=== PATIENT | female | born 1965 | race Caucasian/White ===

== ENCOUNTER → 2016-05-07 | Outpatient (CLI) | payer OTHER ==
[2016-05-07 16:58] VITALS: BP 140/88; PULSE 66; RESP 16; TEMP 97.8; BMI 29.8
--- NOTE | 2016-05-11 18:28 | P.PN ---
Progress Note - Text DATE OF SERVICE: 05/07/2016 CHIEF COMPLAINT: Bariatric assessment. HISTORY OF PRESENT ILLNESS: Vicki Moya is a 51-year-old female with history of adjustable gastric band. As she has had troubles with her weight. She initially had intractable intermittent nausea and vomiting where fluid was removed from her band and now she presents for further evaluation and management. At her height of 5 foot 5, her ideal body weight is 149 pounds. Highest weight was 255 pounds. Today she comes in weighing 179 pounds. She is only 30 pounds overweight. Body mass index has been reduced from 42.5 down to 29.8. Her percent excess weight loss is 72%. Since her last evaluation 4 months ago she has lost another 3 pounds. Now she presents for further evaluation and management. PAST MEDICAL HISTORY: 1. Morbid obesity. 2. Hypertension. 3. Seizure disorder. PAST SURGICAL HISTORY: 1. History of adjustable gastric band placement. 2. section. 3. Tonsillectomy. 4. Tubal ligation. 5. History of adjustable gastric band with port revision. 6. Right temporal lobe biopsy. 7. Sphincterotomy. MEDICATIONS: 1. Luvox. 2. Tegretol. 3. Losartan hydrochlorothiazide. ALLERGIES: TOBRAMYCIN. ERYTHROMYCIN. SOCIAL HISTORY: Reports alcohol use. No active tobacco use. FAMILY HISTORY: Pertinent for morbid obesity and hypertension. REVIEW OF ORGAN SYSTEMS: CONSTITUTIONAL: Highest weight of 255 pounds. [place] body weight of 149 pounds. Present weight is 179 pounds. She has maintained a 76 pound weight loss. Percent excess weight loss is 72%. She has lost 3 pounds in approximately 4 months. Body mass index reduced from 42.5 down to 29.8. Total BMI point reduction is 12.7. GASTROINTESTINAL: Denies any gastroesophageal reflux disease at this time. HEENT: Denies any active dysphagia. No troubles with vision or hearing. ENDOCRINE: No reports of diabetes or thyroid disorders. CARDIOVASCULAR: No reports of recent chest pain or heart attack. RESPIRATORY: Denies any obstructive sleep apnea or dyspnea on exertion. MUSCULOSKELETAL: Reports intermittent osteoarthritis. There are no reports of stroke, however, she does have history of seizure disorder. NEURO: No seizure disorder or stroke. PHYSICAL EXAM: VITAL SIGNS: 97.8, 66, 16, 140/88; 5 feet 5 inches, 179 pounds. Body mass is 29.8. GENERAL: Well-developed female no acute distress. ABDOMEN: Soft, nontender. No palpable incisional hernias. No tenderness along her adjustable gastric band port. HEENT: No scleral icterus. Extraocular movements grossly intact. Moist buccal mucosa. NECK: Supple without lymphadenopathy. CHEST: Nonlabored respirations. CARDIOVASCULAR: Regular rate and rhythm. MUSCULOSKELETAL: No clubbing, cyanosis, or edema. NEURO: No focal or lateralizing signs. Cranial nerves II through XII grossly within normal limits. PSYCH: Appropriate affect. Alert and oriented to person, place, and time. ASSESSMENT: 1. Morbid obesity due to excess calories, now resolved. 2. Body mass index reduced from 42.5 down to 29.8. 3. History of overweight. 4. History of adjustable gastric band. 5. Encounter for adjustment of gastric band. 6. Hypertensive heart disease. PLAN: 1. Would recommend adjustment, as she does report overall appetite. 2. Goal protein intake is advised over 65 grams daily. PROCEDURE: Adjustment of gastric band. DESCRIPTION: After verbal consent, the patient was laid supine. The port was palpated in left upper quadrant. The skin was cleansed with ChloraPrep. The skin was then numbed using 1 mL of 1% lidocaine plain. A 22-gauge non-core Hamm needle was used to access the port without difficulty. 5 mL of fluid was found within her band. 1 mL of normal saline was adjusted as she was drinking water. Total of 6 mL fluid identified. She was able to drink water without severe obstructive symptoms. Otherwise, recommend follow-up at minimum 3 to 4 weeks. Otherwise the patient may follow up sooner should she have any further problems.
== END | disposition home or self-care (01) ==
LOC: BARWHC3 14:42
PROVIDERS: ATTEND Surgery Plastic and Reconstructive Surgery
DX: Z48.815 Encounter for surgical aftercare following surgery on the digestive system (principal); Z98.84 Bariatric surgery status; Z79.899 Other long term (current) drug therapy; Z88.1 Allergy status to other antibiotic agents; Z68.29 Body mass index [BMI] 29.0-29.9, adult
CPT/HCPCS: 99212

== ENCOUNTER → 2016-06-05 | Outpatient (CLI) | payer OTHER ==
[2016-06-05 10:27] VITALS: BP 154/96; PULSE 71; RESP 14; TEMP 97.7; BMI 29.7
--- NOTE | 2016-06-05 13:08 | FL ---
EXAMINATION TYPE: FL barium swallow DATE OF EXAM: 06/05/2016 12:10 PM LAP BANDING LIMITED ESOPHAGRAM: CLINICAL HISTORY: History of lap band 2010 presents with left sided pain near port under breast and reflux-like symptoms at night per patient. 1 cc fill recently removed per patient. Dysphasia, epigast flavio pain, and nausea all per order. TECHNIQUE: Limited esophagram is performed utilizing 6 oz of barium. A total of 24 seconds of fluoro scopic time was utilized during procedure. COMPARISON: Prior limited esophagram October 26, 2010. FINDINGS: Pre-procedure director of scout work image shows lap band in satisfactory position in proximal stomach ju st below the gastroesophageal junction. The patient then drank oral contrast. There is good flow of c ontrast along the course of the esophagus. There is good flow of contrast along the course of the la p band, there is no evidence of contrast extravasation to suggest leak. There is no evidence of lap band slippage appreciated. IMPRESSION: No evidence of lap band slippage or significant obstruction.
--- NOTE | 2016-07-07 12:37 | PN ---
DATE OF SERVICE: 06/05/2016 CHIEF COMPLAINT: Bariatric assessment. HISTORY OF PRESENT ILLNESS: Vicki Moya is a 51-year-old female with history of adjustable gastric band. In the past she has developed troubles with her weight. At her height of 5 feet 4-1/4 inches, her ideal body weight is 144 pounds. Her initial weight was 255 pounds. Today she comes in weighing 177 pounds. She has actually lost 2 pounds. Body mass index has been reduced from 42.9 down to 29.7. Total BMI point reduction is 13.2. She has maintained a 78-pound weight loss. Since her last evaluation approximately a month ago she has actually lost another 2 pounds despite being adjusted. She comes in with complaints that her port has malfunction including chronic burning. She also reports nighttime reflux for the last 2 to 3 weeks. Now she presents for further evaluation regarding her adjustable gastric band. PAST MEDICAL HISTORY: 1. Morbid obesity. 2. Hypertension. 3. Seizure disorder. PAST SURGICAL HISTORY: 1. History of adjustable gastric band placement. 2. section. 3. Tonsillectomy. 4. Tubal ligation. 5. History of adjustable gastric band with port revision. 6. Right temporal lobe biopsy. 7. Sphincterotomy. MEDICATIONS: 1. Luvox. 2. Tegretol. 3. Losartan hydrochlorothiazide. 4. Melatonin. 5. Xanax. ALLERGIES: TOBRAMYCIN. ERYTHROMYCIN. SOCIAL HISTORY: Reports alcohol use. No active tobacco use. FAMILY HISTORY: Pertinent for morbid obesity and hypertension. REVIEW OF SYSTEMS: CONSTITUTIONAL: [place] body weight of 144 pounds. Highest weight of 255 pounds. Total maintained weight loss of 78 pounds. Percent excess weight loss is 71%. Body mass index reduced from 42.9 down to 29.7. Total BMI point reduction is 13.2. GASTROINTESTINAL: Severe gastroesophageal reflux disease. HEENT: Denies any active dysphagia. No troubles with vision or hearing. ENDOCRINE: No reports of diabetes or thyroid disorders. CARDIOVASCULAR: No reports of recent chest pain or heart attack. RESPIRATORY: Denies any obstructive sleep apnea or dyspnea on exertion. MUSCULOSKELETAL: Reports intermittent osteoarthritis. There are no reports of stroke, however, she does have history of seizure disorder. NEURO: No seizure disorder or stroke. PHYSICAL EXAM: VITAL SIGNS: 97.7, 71, 14, 154/96, 5 feet 4 and 3/4 inch frame, 177 pounds. Body mass is a 29.7. ABDOMEN: Soft, nondistended. Port palpated along the left upper quadrant. Moderate panniculitis. GENERAL: Well-developed female no acute distress. HEENT: No scleral icterus. Extraocular movements grossly intact. Moist buccal mucosa. NECK: Supple without lymphadenopathy. CHEST: Nonlabored respirations. CARDIOVASCULAR: Regular rate and rhythm. MUSCULOSKELETAL: No clubbing, cyanosis, or edema. NEURO: No focal or lateralizing signs. Cranial nerves II through XII grossly within normal limits. PSYCH: Appropriate affect. Alert and oriented to person, place, and time. LABS: No new labs at this time. ASSESSMENT: 1. Morbid obesity due to excess calories, now resolved. 2. Body mass index reduced from 42.5 down to 29.8. 3. History of overweight. 4. History of adjustable gastric band. 5. Encounter for adjustment of gastric band. 6. Hypertensive heart disease. 7. Gastroesophageal reflux disease. 8. Complications from adjustable gastric band port. PLAN: 1. She continues to have symptoms with her band and I have recommend removal of fluid from her band. 2. She also reports troubles with her port where the port tends to roll or malfunction. Recommend diagnostic laparoscopy with revision of her port. 3. Recommend liquid diet after her port adjustment. PROCEDURE: Adjustment of gastric band. DESCRIPTION: After verbal consent, the patient was laid supine. The port was palpated in left upper quadrant. Skin was cleansed with ChloraPrep. The skin was numbed using 1 mL 1% lidocaine plain. A 22-gauge non-core Hamm needle was used to access the port without difficulty. Next, 6 mL of fluid was found within her band, 2 mL of fluid was removed. Now she has a total of 4 mL in her band. She was able to tolerate drinking her fluids with improvement of her symptoms. I have recommended follow-up sooner should she have any further obstructive symptoms. Otherwise, recommend reposition of her adjustable gastric band port. [facility]
== END | disposition home or self-care (01) ==
LOC: BARWHC3 09:16
PROVIDERS: ATTEND Surgery Plastic and Reconstructive Surgery
DX: R13.10 Dysphagia, unspecified (principal); R11.0 Nausea
CPT/HCPCS: 74220; 99212

== ENCOUNTER → 2016-07-04 | Outpatient (CLI) | payer OTHER | LOC: LABWHC1 08:52 | PROVIDERS: ATTEND Family Medicine | DX: Z01.818 Encounter for other preprocedural examination (principal) | CPT/HCPCS: 36415; 93005 ==

== ENCOUNTER 2016-07-07 11:19 | Day surgery (SDC) | payer OTHER ==
[2016-07-04 09:01] VITALS: BMI 29.6
--- NOTE | 2016-07-07 07:26 | P.GSHP ---
History of Present Illness H&P Date: 07/07/16 CHIEF COMPLAINT: Malfunctioning port HISTORY OF PRESENT ILLNESS: Vicki Moya is a 51-year-old female with history of adjustable gastric band. As she has had troubles with her weight. She initially had intractable intermittent nausea and vomiting where fluid was removed from her band and now she presents for further evaluation and management. At her height of 5 foot 5, her ideal body weight is 149 pounds. Highest weight was 255 pounds. Today she comes in weighing 178 pounds. She is only 30 pounds overweight. Body mass index has been reduced from 42.5 down to 29.6. Her percent excess weight loss is 72%. She comes in with troubles with her port which flips. Separately she reports intermittent abdominal pain from a port site.. Now she presents for further evaluation and management. PAST MEDICAL HISTORY: 1. Morbid obesity. 2. Hypertension. 3. Seizure disorder. PAST SURGICAL HISTORY: 1. History of adjustable gastric band placement. 2. section. 3. Tonsillectomy. 4. Tubal ligation. 5. History of adjustable gastric band with port revision. 6. Right temporal lobe biopsy. 7. Sphincterotomy. MEDICATIONS: 1. Luvox. 2. Tegretol. 3. Losartan hydrochlorothiazide. ALLERGIES: TOBRAMYCIN. ERYTHROMYCIN. SOCIAL HISTORY: Reports alcohol use. No active tobacco use. FAMILY HISTORY: Pertinent for morbid obesity and hypertension. REVIEW OF ORGAN SYSTEMS: CONSTITUTIONAL: Highest weight of 255 pounds. [place] body weight of 149 pounds. Present weight is 178 pounds. She has maintained a 77 pound weight loss. Percent excess weight loss is 72%. Body mass index reduced from 42.5 down to 29.6. Total BMI point reduction is 12.7. GASTROINTESTINAL: Denies any gastroesophageal reflux disease at this time. HEENT: Denies any active dysphagia. No troubles with vision or hearing. ENDOCRINE: No reports of diabetes or thyroid disorders. CARDIOVASCULAR: No reports of recent chest pain or heart attack. RESPIRATORY: Denies any obstructive sleep apnea or dyspnea on exertion. MUSCULOSKELETAL: Reports intermittent osteoarthritis. There are no reports of stroke, however, she does have history of seizure disorder. NEURO: No seizure disorder or stroke. PHYSICAL EXAM: VITAL SIGNS: 97.8, 66, 16, 140/88; 5 feet 5 inches, 178 pounds. Body mass is 29.6. GENERAL: Well-developed female no acute distress. ABDOMEN: Soft, nontender. No palpable incisional hernias. No tenderness along her adjustable gastric band port. HEENT: No scleral icterus. Extraocular movements grossly intact. Moist buccal mucosa. NECK: Supple without lymphadenopathy. CHEST: Nonlabored respirations. CARDIOVASCULAR: Regular rate and rhythm. MUSCULOSKELETAL: No clubbing, cyanosis, or edema. NEURO: No focal or lateralizing signs. Cranial nerves II through XII grossly within normal limits. PSYCH: Appropriate affect. Alert and oriented to person, place, and time. ASSESSMENT: 1. Morbid obesity due to excess calories, now resolved. 2. Body mass index reduced from 42.5 down to 29.6. 3. History of overweight. 4. History of adjustable gastric band. 5. Malfunction of adjustable gastric band port. 6. Hypertensive heart disease. PLAN: 1. As she has troubles with her port with mechanical failure, recommend repair of port with fixation to the abdominal wall. 2. Also recommend diagnostic laparoscopy to evaluate the intra-abdominal band position. 3. DVT prophylaxis. 4. Antibiotic prophylaxis. 5. She has 4 mL in the band whereby 6 mL was too tight for her. 6. Will need abdominal binder postop. Past Medical History Past Medical History: GERD/Reflux, Hypertension, Seizure Disorder Additional Past Medical History / Comment(s): LAST SEIZURE 2007. , LAP BAND. History of Any Multi-Drug Resistant Organisms: None Reported Past Surgical History: Bariatric Surgery, Section, Tonsillectomy, Tubal Ligation Additional Past Surgical History / Comment(s): Angiogram, lap band 10/25/10, LAP BAND PORT REPLACED, RIGHT TEMPORAL LOBE AVM SURGERY( 1992). RECTAL SPHINCTEROTOMY Past Anesthesia/Blood Transfusion Reactions: Motion Sickness, Postoperative Nausea & Vomiting (PONV) Past Psychological History: Anxiety, Depression Additional Psychological History / Comment(s): OCD Smoking Status: Never smoker Past Alcohol Use History: Occasional Past Drug Use History: None Reported - Past Family History Mother Family Medical History: Cancer Additional Family Medical History / Comment(s): BREAST Father Family Medical History: Cancer Additional Family Medical History / Comment(s): PROSTATE CANCER Medications and Allergies Home Medications Medication Instructions Recorded Confirmed Type carBAMazepine [TEGretol] 300 mg PO BID 09/01/13 07/04/16 History fluvoxaMINE [Luvox] 100 mg PO DAILY 09/01/13 07/04/16 History Losartan/Hydrochlorothiazide 1 tab PO DAILY 01/16/16 07/04/16 History [Losartan-Hctz 100-25 mg Tab] ALPRAZolam [Xanax] 0.125 mg PO DAILY PRN 07/04/16 07/04/16 History Melatonin 1.5 mg PO HS 07/04/16 07/04/16 History Allergies Allergy/AdvReac Type Severity Reaction Status Date / Time tobramycin Allergy eye Verified 07/04/16 08:29 swelling worse, itching erythromycin base AdvReac Severe Nausea & Verified 07/04/16 08:29 [Erythromycin Base] Vomiting
[~2016-07-07 11:19] MED LIST: DEXAMETHASONE SOD PHOSPHATE 10 MG/ML 1 ML VIAL IV ONE; HEPARIN SODIUM,PORCINE 5,000 UNIT/ML 1 ML VIAL SQ ONE; HYDROmorphone 1 MG/ML 1 ML SYRINGE IVP PRN; LACTATED RINGERS 1,000 ML IV SCH; MIDAZOLAM 2 MG/2 ML VIAL IV PRN; SCOPOLAMINE 1.5MG/72HR PATCH TRANSDERM ONE; ceFAZolin 2 GM in SODIUM CHLORIDE 0.9% 100 ML IVPB ONE
[2016-07-07] MEDS: ONDANSETRON 4 MG/2 ML VIAL IVP ONE ×2 (12:05→16:42)
[2016-07-07] MEDS ORDERED: NEOSTIGMINE 1 MG/ML 10 ML VIAL ONE (13:52)
[2016-07-07] MEDS ORDERED: fentaNYL (PF) 50 MCG/ML 2 ML AMP ONE (13:52)
[2016-07-07] MEDS ORDERED: HYDROmorphone (PF) 1 MG/ML ONE (13:52)
[2016-07-07] MEDS ORDERED: GLYCOPYRROLATE 0.2 MG/ML 2 ML VIAL ONE (13:52)
[2016-07-07] MEDS ORDERED: MIDAZOLAM 2 MG/2 ML VIAL ONE (13:52)
[2016-07-07] MEDS ORDERED: SUCCINYLCHOLINE CHLORIDE 100 MG/5 ML SYR IV ONE (13:52)
[2016-07-07] MEDS ORDERED: VECURONIUM 10 MG VIAL IV ONE (13:52)
[2016-07-07] MEDS ORDERED: PROPOFOL 10 MG/ML 20 ML VIAL IV ONE (13:52)
[2016-07-07] MEDS ORDERED: LIDOCAINE 1% INJ 10MG/ML (20 ML MDV) ONE (13:52)
[2016-07-07] MEDS ORDERED: BUPIVACAIN-EPI 0.25%-1:200,000 30 ML VIAL SQ ONE (14:22)
[2016-07-07] MEDS ORDERED: LACTATED RINGERS 1,000 ML IV ONE ×2 (14:23)
[2016-07-07 15:17] VITALS: TEMP 98
--- NOTE | 2016-07-07 15:31 | P.PCN ---
Date of Procedure: 07/07/16 Preoperative Diagnosis: Malfunction gastric band port, epigastric abdominal pain, gastroesophageal reflux disease Postoperative Diagnosis: Same Procedure(s) Performed: Revision of gastric band port, diagnostic laparoscopy, intraoperative esophagogastroduodenoscopy with biopsy of the antrum Anesthesia: OMER, local Surgeon: Karina Wells Estimated Blood Loss (ml): 5 Pathology: other (Antrum) Condition: stable Disposition: floor Operative Findings: No evidence of band erosion, LA grade B erosive esophagitis, Hill grade 1 lower esophageal valve, malposition of port of the left upper quadrant, and of acute angle. Junction at 38 cm. Plan - Discharge Summary New Discharge Prescriptions: Hydrocodone/Acetaminophen [[place] 5-325] 1 - 2 each PO Q6HR PRN #30 tab PRN Reason: Pain Omeprazole 40 mg PO DAILY #30 capsule.dr Grimm Medication List carBAMazepine [TEGretol] 300 mg PO BID 09/01/13 [History] fluvoxaMINE [Luvox] 100 mg PO DAILY 09/01/13 [History] Losartan/Hydrochlorothiazide [Losartan-Hctz 100-25 mg Tab] 1 tab PO DAILY [History] ALPRAZolam [Xanax] 0.125 mg PO DAILY PRN 07/04/16 [History] Melatonin 1.5 mg PO HS 07/04/16 [History] Hydrocodone/Acetaminophen [[place] 5-325] 1 - 2 each PO Q6HR PRN #30 tab 07/07/16 [Rx] Omeprazole 40 mg PO DAILY #30 capsule. 07/07/16 [Rx] Follow up Appointment(s)/Referral(s): Karina Wells MD [STAFF PHYSICIAN] - 07/09/16 (Follow-up at [facility], confirm time.) Patient Instructions/Handouts: *Surgery [facility] - (Anesthesia) Endoscopy Discharge Instructions, Exploratory Laparoscopy (DC), Abdominal Binder (DC) Activity/Diet/Wound Care/Special Instructions: No lifting over 4 pounds in 4 weeks. Wear abdominal binder at all times except showing. Do not remove dressing. Discharge Disposition: HOME SELF-CARE
[2016-07-07 17:11] VITALS: RESP 16
[2016-07-07 17:54] VITALS: BP 115/74; PULSE 74
== END 2016-07-07 18:02 | disposition home or self-care (01) ==
LOC: OR 11:19
PROVIDERS: ATTEND Surgery Plastic and Reconstructive Surgery
DX: T85.518A Breakdown (mechanical) of other gastrointestinal prosthetic devices, implants and grafts, initial encounter (principal); K29.50 Unspecified chronic gastritis without bleeding; K21.9 Gastro-esophageal reflux disease without esophagitis; G40.909 Epilepsy, unspecified, not intractable, without status epilepticus; I10 Essential (primary) hypertension; E66.3 Overweight; Z68.29 Body mass index [BMI] 29.0-29.9, adult; F42.9 Obsessive-compulsive disorder, unspecified; F41.9 Anxiety disorder, unspecified; Z79.899 Other long term (current) drug therapy; Z88.1 Allergy status to other antibiotic agents
CPT/HCPCS: 88305; 88342; 43771; 43239; C1781; J2250; J1644; J1100; J2710; J0690; J2405; J2001; J3010; J1170; J0330; J2704

== ENCOUNTER → 2016-07-09 | Outpatient (CLI) | payer OTHER ==
[2016-07-09 15:35] VITALS: BP 133/74; PULSE 66; TEMP 98
--- NOTE | 2016-08-04 21:00 | P.PN ---
Progress Note - Text DATE OF SERVICE: 07/09/2016. CHIEF COMPLAINT: Follow-up port revision. HISTORY OF PRESENT ILLNESS: Vicki Moya is a 51-year-old female status post port revision on 07/07/2016. She is now approximately 2 days postop. She reports that her pain is fairly well controlled. She also reports her previous bulge along her upper abdomen is now resolved. Now she presents for further evaluation and management. At her height of 5 feet 4-1/2 inches, her ideal body weight is 144 pounds. Highest weight is 255 pounds. Today she comes in weighing 183 pounds. Percent excess weight loss is 65%. Total weight loss is 72 pounds. Body mass index reduced is from 43.2 down to 31. She is only 39 pounds overweight. Total BMI point reduction is 12.2. PHYSICAL EXAM: VITAL SIGNS: 98.0, 66, 16, 133/74; 5 feet 4-1/2 inches, 183 pounds. Body mass index is 31. ABDOMEN: Incision clean, dry and intact without signs of infection or cellulitis or seroma. Abdominal binder was placed. GENERAL: Well-developed female no acute distress. HEENT: No scleral icterus. Extraocular movements grossly intact. Moist buccal mucosa. NECK: Supple without lymphadenopathy. CHEST: Nonlabored respirations. CARDIOVASCULAR: Regular rate and rhythm. MUSCULOSKELETAL: No clubbing, cyanosis, or edema. NEURO: No focal or lateralizing signs. Cranial nerves II through XII grossly within normal limits. PSYCH: Appropriate affect. Alert and oriented to person, place, and time. ASSESSMENT: 1. Morbid obesity due to excess calories. 2. Body mass index reduced from 43.2 down to 31. 3. Obesity, BMI 31. 4. History of adjustable gastric band port malfunction. 5. Status post revision of port. PLAN: 1. I have discussed with her the necessity to continue with abdominal binder at all times to minimize risk of seroma. 2. She does report gastroesophageal reflux disease which omeprazole has been written on her behalf. 3. I have recommended wearing her abdominal binder at least 4 weeks. 4. Recommend follow-up ideally in another 3 to 4 weeks for additional adjustment as needed.
== END | disposition home or self-care (01) ==
LOC: BARWHC3 14:16
PROVIDERS: ATTEND Surgery Plastic and Reconstructive Surgery
DX: Z48.815 Encounter for surgical aftercare following surgery on the digestive system (principal); E66.9 Obesity, unspecified; Z68.31 Body mass index [BMI] 31.0-31.9, adult; K95.09 Other complications of gastric band procedure; K21.9 Gastro-esophageal reflux disease without esophagitis
CPT/HCPCS: 99211

== ENCOUNTER → 2016-08-28 | Outpatient (CLI) | payer OTHER ==
[2016-08-28 10:56] VITALS: BP 154/98; PULSE 66; RESP 16; BMI 30.9
--- NOTE | 2016-09-27 18:11 | P.PN ---
Progress Note - Text DATE OF SERVICE: 08/28/2016. CHIEF COMPLAINT: Follow-up port revision. HISTORY OF PRESENT ILLNESS: Vicki Moya is a 51-year-old female status post port revision on 07/07/2016. She is now approximately 2 months postop. No reports of abdominal pain. She reports an appetite. Now she presents for further evaluation and management. At her height of 5 feet 4-1/2 inches, her ideal body weight is 144 pounds. Highest weight is 255 pounds. Today she comes in weighing 184 pounds. Percent excess weight loss is 64%. Total weight loss is 71 pounds. Body mass index reduced is from 42.9 down to 30.9. She is only 40 pounds overweight. PHYSICAL EXAM: VITAL SIGNS: 5 feet 4-3/4 inches, 184 pounds. Body mass index is 30.9. Vital Signs Temp Pulse 66 08/28/16 10:50 Resp 16 08/28/16 10:50 BP 154/98 08/28/16 10:50 Pulse Ox ABDOMEN: Soft, nontender, nondistended. No seroma along port site. GENERAL: Well-developed female no acute distress. HEENT: No scleral icterus. Extraocular movements grossly intact. Moist buccal mucosa. NECK: Supple without lymphadenopathy. CHEST: Nonlabored respirations. CARDIOVASCULAR: Regular rate and rhythm. MUSCULOSKELETAL: No clubbing, cyanosis, or edema. NEURO: No focal or lateralizing signs. Cranial nerves II through XII grossly within normal limits. PSYCH: Appropriate affect. Alert and oriented to person, place, and time. ASSESSMENT: 1. Morbid obesity due to excess calories. 2. Body mass index reduced from 42.9 down to 30.9. 3. Obesity, BMI 30.9. 4. History of adjustable gastric band port malfunction. 5. Status post revision of port. PLAN: 1. Recommend an adjustment as she has an appetite and is in the yellow zone. PROCEDURE: Adjustment of gastric band. DESCRIPTION: After verbal consent, the patient was laid supine. The port was palpated in left upper quadrant. Skin was cleansed with ChloraPrep. The skin was numbed using 1 mL 1% lidocaine plain. A 22-gauge non-core Hamm needle was used to access the port without difficulty. Next, 1 mL of fluid was placed in her band. She was able to tolerate drinking her fluids without moderate dysphagia. She had tolerated the procedure well.
== END | disposition home or self-care (01) ==
LOC: BARWHC3 10:03
PROVIDERS: ATTEND Surgery Plastic and Reconstructive Surgery
DX: Z09 Encounter for follow-up examination after completed treatment for conditions other than malignant neoplasm (principal); E66.09 Other obesity due to excess calories; Z68.30 Body mass index [BMI] 30.0-30.9, adult; Z98.890 Other specified postprocedural states
CPT/HCPCS: 99212

== ENCOUNTER → 2016-12-04 | Outpatient (CLI) | payer OTHER ==
[2016-12-04 09:43] VITALS: BP 166/89; PULSE 68; RESP 16; BMI 30.4
--- NOTE | 2016-12-27 21:26 | P.PN ---
Progress Note - Text DATE OF SERVICE: 12/04/2016 CHIEF COMPLAINT: Bariatric assessment. HISTORY OF PRESENT ILLNESS: Vicki Moya is a 51-year-old female with history of adjustable gastric band. She is status post port revision. At her height of 5 feet 4-1/4 inches, her ideal body weight is 144 pounds. Her initial weight was 255 pounds. Today she comes in weighing 182 pounds. She has lost 3 pounds in 3 months. Body mass index has been reduced from 42.9 down to 30.5. She has maintained a 73-pound weight loss. Percent excess weight loss is 66%. She reports severe gastroesophageal reflux disease with her band. She has been started on omeprazole. She reports less restriction despite a previous adjustment. Now she presents for further valuation management. PAST MEDICAL HISTORY: 1. Morbid obesity. 2. Hypertension. 3. Seizure disorder. PAST SURGICAL HISTORY: 1. History of adjustable gastric band placement. 2. section. 3. Tonsillectomy. 4. Tubal ligation. 5. History of adjustable gastric band with port revision. 6. Right temporal lobe biopsy. 7. Sphincterotomy. 8. Recent port revision, 2017. MEDICATIONS: 1. Luvox. 2. Tegretol. 3. Losartan hydrochlorothiazide. 4. Melatonin. 5. Xanax. ALLERGIES: TOBRAMYCIN. ERYTHROMYCIN. SOCIAL HISTORY: Reports alcohol use. No active tobacco use. FAMILY HISTORY: Pertinent for morbid obesity and hypertension. REVIEW OF SYSTEMS: CONSTITUTIONAL: At her height of 5 feet 4-1/4 inches, her ideal body weight is 144 pounds. Her initial weight was 255 pounds. Today she comes in weighing 182 pounds. She has lost 3 pounds in 3 months. Body mass index has been reduced from 42.9 down to 30.5. She has maintained a 73-pound weight loss. Percent excess weight loss is 66%. GASTROINTESTINAL: Severe gastroesophageal reflux disease not controlled with omeprazole. HEENT: Denies any active dysphagia. No troubles with vision or hearing. ENDOCRINE: No reports of diabetes or thyroid disorders. CARDIOVASCULAR: No reports of recent chest pain or heart attack. RESPIRATORY: Denies any obstructive sleep apnea or dyspnea on exertion. MUSCULOSKELETAL: Reports intermittent osteoarthritis. NEURO: No stroke. Has seizure disorder. SKIN: No rash or skin cancers. HEMATOLOGIC: No easy bruising or bleeding. PHYSICAL EXAM: VITAL SIGNS: 5 feet 4 and 3/4 inch frame, 182 pounds. Body mass is a 30.5. Vital Signs Temp Pulse 68 12/04/16 09:23 Resp 16 12/04/16 09:23 BP 166/89 12/04/16 09:23 Pulse Ox ABDOMEN: Soft, nondistended. Port palpated along the left upper quadrant. GENERAL: Well-developed female no acute distress. HEENT: No scleral icterus. Extraocular movements grossly intact. Moist buccal mucosa. Hears conversational speech. NECK: Supple without lymphadenopathy. CHEST: Nonlabored respirations. Equal bilateral excursions. CARDIOVASCULAR: Regular rate and rhythm. 2+ radial pulses. MUSCULOSKELETAL: No clubbing, cyanosis, or edema. NEURO: No focal or lateralizing signs. Cranial nerves II through XII grossly within normal limits. PSYCH: Appropriate affect. Alert and oriented to person, place, and time. SKIN: Well perfused. Good skin turgor. ASSESSMENT: 1. Morbid obesity due to excess calories, now resolved. 2. Body mass index reduced from 42.5 down to 30.5. 3. History of overweight. 4. History of adjustable gastric band. 5. Encounter for adjustment of gastric band. 6. Hypertensive heart disease. 7. Gastroesophageal reflux disease. 8. Seizure disorder. PLAN: 1. Since start of her omeprazole, her reflux disease is better controlled. Benefits and risks of prolonged medical treatment were reviewed for proton pump inhibitors. Additional prescriptions for omeprazole was written. 2. For weight loss, additional dietary education were reviewed as to help with weight loss. 3. Alternatively, other surgical options for treatment of reflux were reviewed. At this time conservative management only.
== END | disposition home or self-care (01) ==
LOC: BARWHC3 08:54
PROVIDERS: ATTEND Surgery Plastic and Reconstructive Surgery
DX: Z48.815 Encounter for surgical aftercare following surgery on the digestive system (principal); E66.01 Morbid (severe) obesity due to excess calories; Z68.30 Body mass index [BMI] 30.0-30.9, adult; I11.9 Hypertensive heart disease without heart failure; K21.9 Gastro-esophageal reflux disease without esophagitis; G40.909 Epilepsy, unspecified, not intractable, without status epilepticus; Z88.1 Allergy status to other antibiotic agents; Z79.899 Other long term (current) drug therapy; Z98.84 Bariatric surgery status
CPT/HCPCS: 99211

== ENCOUNTER → 2017-07-07 | Outpatient (CLI) | payer OTHER ==
--- NOTE | 2017-07-07 12:35 | FL ---
EXAMINATION TYPE: FL barium swallow DATE OF EXAM: 07/07/2017 LAP BANDING LIMITED ESOPHAGRAM: CLINICAL HISTORY: R13.10 Dysphagia TECHNIQUE: Dr. Vargas. Fluoro time 00:57. 3 oz EZ paque . 6 images obtained. COMPARISON: 09/05/2013 None. FINDINGS: Pre-procedure district [employer] executive image shows lap band in satisfactory position in proximal stomach ju st below the gastroesophageal junction. There is good flow of contrast along the course of the esopha shirley. There is good flow of contrast along the course of the lap band, there is no evidence of contra st extravasation to suggest leak. There is no significant gastric prolapse appreciated. IMPRESSION: No evidence of prolapse or significant obstruction.
== END | disposition home or self-care (01) ==
LOC: RADFLMAIN 10:46
PROVIDERS: ATTEND Surgery Plastic and Reconstructive Surgery
DX: R13.10 Dysphagia, unspecified (principal); R22.2 Localized swelling, mass and lump, trunk
CPT/HCPCS: 74220

== ENCOUNTER → 2017-08-05 | Outpatient (CLI) | payer SELFPAY ==
--- NOTE | 2017-08-07 10:17 | MM ---
Reason for exam: screening (asymptomatic). Last mammogram was performed 8 years and 7 months ago. History: Patient is postmenopausal. Family history of premenopausal breast cancer in mother at age 42. Physical Findings: A clinical breast exam by your physician is recommended on an annual basis and results should be correlated with mammographic findings. MG Screening Mammo w CAD Bilateral CC and MLO view(s) were taken. Prior study comparison: January 11, 2009, bilateral digital screening mammogram. 2006, mammogram, performed at [facility]. The breast tissue is heterogeneously dense. This may lower the sensitivity of mammography. There is no discrete abnormality. No significant changes when compared with prior studies. ASSESSMENT: Negative, BI-RAD 1 RECOMMENDATION: Routine screening mammogram of both breasts in 1 year.
== END | disposition home or self-care (01) ==
LOC: RADMAMWWP 09:24
PROVIDERS: ATTEND Obstetrics & Gynecology
DX: Z12.31 Encounter for screening mammogram for malignant neoplasm of breast (principal)
CPT/HCPCS: 77067

== ENCOUNTER → 2018-05-12 | Outpatient (CLI) | payer OTHER ==
[2018-05-12 13:55] VITALS: BP 132/83; PULSE 81; TEMP 98.6; BMI 29.2
--- NOTE | 2018-05-12 14:40 | P.PN ---
Subjective Progress Note Date: 05/12/18 DATE OF SERVICE: 05/12/2018 CHIEF COMPLAINT: Gastroesophageal reflux disease. HISTORY OF PRESENT ILLNESS: Vicki Moya is a [id number] female with history of adjustable gastric band. Her band is perfect as she continues to lose weight. She reports poor relief with low dose Omeprazole. She denies dysphagia. At her height of 5 feet 4-1/4 inches, her ideal body weight is 144 pounds. Her initial weight was 255 pounds. Today she comes in weighing 174 pounds from 182 pounds, 2 years ago. She has lost 7 pounds in 2 years. Body mass index has been reduced from 42.9 down to 29.2. She has maintained 81-pound weight loss. Percent excess weight loss is 73%. PAST MEDICAL HISTORY: 1. Morbid obesity. 2. Hypertension. 3. Seizure disorder. PAST SURGICAL HISTORY: 1. History of adjustable gastric band placement. 2. section. 3. Tonsillectomy. 4. Tubal ligation. 5. History of adjustable gastric band with port revision. 6. Right temporal lobe biopsy. 7. Sphincterotomy. 8. Recent port revision, 2017. MEDICATIONS: 1. Luvox. 2. Tegretol. 3. Losartan hydrochlorothiazide. 4. Melatonin. 5. Xanax. ALLERGIES: TOBRAMYCIN. ERYTHROMYCIN. SOCIAL HISTORY: Reports alcohol use. No active tobacco use. FAMILY HISTORY: Pertinent for morbid obesity and hypertension. REVIEW OF SYSTEMS: CONSTITUTIONAL: At her height of 5 feet 4-1/4 inches, her ideal body weight is 144 pounds. Her initial weight was 255 pounds. Body mass index 42.9. She has maintained a 73-pound weight loss. Percent excess weight loss is 66%. GASTROINTESTINAL: Severe gastroesophageal reflux disease not controlled with omeprazole. HEENT: Denies any active dysphagia. No troubles with vision or hearing. ENDOCRINE: No reports of diabetes or thyroid disorders. CARDIOVASCULAR: No reports of recent chest pain or heart attack. RESPIRATORY: Denies any obstructive sleep apnea or dyspnea on exertion. MUSCULOSKELETAL: Reports intermittent osteoarthritis. NEURO: No stroke. Has seizure disorder. SKIN: No rash or skin cancers. HEMATOLOGIC: No easy bruising or bleeding. PHYSICAL EXAM: VITAL SIGNS: 5 feet 4 and 3/4 inch frame, 174 pounds. Body mass is 29.2. Vital Signs Temp 98.6 F 05/12/18 13:50 Pulse 81 05/12/18 13:50 Resp BP 132/83 05/12/18 13:50 Pulse Ox ABDOMEN: Soft, nondistended. Port palpated along the left upper quadrant. GENERAL: Well-developed female no acute distress. HEENT: No scleral icterus. Extraocular movements grossly intact. Moist buccal mucosa. Hears conversational speech. NECK: Supple without lymphadenopathy. CHEST: Nonlabored respirations. Equal bilateral excursions. CARDIOVASCULAR: Regular rate and rhythm. 2+ radial pulses. MUSCULOSKELETAL: No clubbing, cyanosis, or edema. NEURO: No focal or lateralizing signs. Cranial nerves II through XII grossly within normal limits. PSYCH: Appropriate affect. Alert and oriented to person, place, and time. SKIN: Well perfused. Good skin turgor. STUDIES: Esophogram images personally reviewed without slipped band. Radiology report reviewed without moderate obstruction from her band. ASSESSMENT: 1. Morbid obesity due to excess calories, now resolved. 2. Body mass index reduced from 42.5 down to 29.2 3. History of overweight. 4. History of adjustable gastric band. 5. Encounter for adjustment of gastric band. 6. Hypertensive heart disease. 7. Gastroesophageal reflux disease. 8. Seizure disorder. PLAN: 1. Recommend increase Omeprazole 40 mg daily 2. May continue with adjustable gastric band. Objective - Vital Signs Vital signs: Vital Signs Temp 98.6 F 05/12/18 13:50 Pulse 81 05/12/18 13:50 Resp BP 132/83 05/12/18 13:50 Pulse Ox Intake & Output 05/11/18 05/12/18 05/12/18 18:59 06:59 18:59 Weight 79.107 kg
== END | disposition home or self-care (01) ==
LOC: BARWHC3 13:21
PROVIDERS: ATTEND Surgery Plastic and Reconstructive Surgery
DX: K21.9 Gastro-esophageal reflux disease without esophagitis (principal); I11.9 Hypertensive heart disease without heart failure; G40.909 Epilepsy, unspecified, not intractable, without status epilepticus; Z46.51 Encounter for fitting and adjustment of gastric lap band; Z83.49 Family history of other endocrine, nutritional and metabolic diseases; Z79.899 Other long term (current) drug therapy; Z88.1 Allergy status to other antibiotic agents
CPT/HCPCS: 99211

== ENCOUNTER → 2019-01-11 | Outpatient (CLI) | payer OTHER ==
--- NOTE | 2019-01-12 11:32 | MM ---
Reason for exam: screening (asymptomatic). Last mammogram was performed 1 year and 5 months ago. History: Patient is postmenopausal. Family history of premenopausal breast cancer in mother at age 42. Took estrogen for 1 year. Took progesterone for 1 year. Physical Findings: A clinical breast exam by your physician is recommended on an annual basis and results should be correlated with mammographic findings. MG Screening Mammo w CAD Bilateral CC and MLO view(s) were taken. Prior study comparison: August 05, 2017, bilateral MG screening mammo w CAD. January 11, 2009, bilateral digital screening mammogram. There are scattered fibroglandular densities. Focal asymmetry left MLO posterior depth. This finding is changed when compared with previous exams. ASSESSMENT: Incomplete: need additional imaging evaluation, BI-RAD 0 RECOMMENDATION: Special view mammogram of the left breast. If lesion persists on supplemental views, image directed ultrasound is recommended. [facility] will attempt to contact patient to return for supplemental views and ultrasound if indicated.
== END ==
LOC: RADMAMWWP 08:22
PROVIDERS: ATTEND Obstetrics & Gynecology
DX: Z12.31 Encounter for screening mammogram for malignant neoplasm of breast (principal)
CPT/HCPCS: 77067

== ENCOUNTER → 2019-01-19 | Outpatient (CLI) | payer OTHER ==
--- NOTE | 2019-01-20 08:47 | MM ---
Reason for exam: additional evaluation requested from abnormal screening. Last mammogram was performed less than 1 month ago. History: Patient is postmenopausal. Family history of premenopausal breast cancer in mother at age 42. Took estrogen for 1 year. Took progesterone for 1 year. Physical Findings: Nurse did not find any significant physical abnormalities on exam. MG 3D Work Up W/Cad LT Spot compression CC, spot compression MLO, and ML view(s) were taken of the left breast. Prior study comparison: January 11, 2019, bilateral MG screening mammo w CAD. August 05, 2017, bilateral MG screening mammo w CAD. The breast tissue is heterogeneously dense. This may lower the sensitivity of mammography. These results were verbally communicated with the patient and result sheet given to the patient on 01/19/19. ASSESSMENT: Probably benign, BI-RAD 3 RECOMMENDATION: Follow-up diagnostic mammogram of the left breast in 6 months.
== END | disposition home or self-care (01) ==
LOC: RADMAMWWP 14:10
PROVIDERS: ATTEND Obstetrics & Gynecology
DX: R92.8 Other abnormal and inconclusive findings on diagnostic imaging of breast (principal)
CPT/HCPCS: 77061; 77065

== ENCOUNTER → 2019-09-21 | Outpatient (CLI) | payer BC ==
--- NOTE | 2019-09-21 13:37 | MM ---
Reason for exam: follow-up at short interval from prior study. Last mammogram was performed 8 months ago. History: Patient is postmenopausal. Family history of premenopausal breast cancer in mother at age 42. Took estrogen for 1 year. Took progesterone for 1 year. Physical Findings: Nurse did not find any significant physical abnormalities on exam. MG 3D Diag Mammo W/Cad LT CC and MLO view(s) were taken of the left breast. Prior study comparison: January 19, 2019, left breast MG 3d work up w/cad LT. January 11, 2019, bilateral MG screening mammo w CAD. The breast tissue is heterogeneously dense. This may lower the sensitivity of mammography. There is no discrete abnormality including area of concern. These results were verbally communicated with the patient and result sheet given to the patient on 09/21/19. ASSESSMENT: Probably benign, BI-RAD 3 RECOMMENDATION: Follow-up diagnostic mammogram of both breasts in 6 months. Back on schedule.
== END | disposition home or self-care (01) ==
LOC: RADMAMWWP 12:38
PROVIDERS: ATTEND Obstetrics & Gynecology
DX: R92.8 Other abnormal and inconclusive findings on diagnostic imaging of breast (principal); Z80.3 Family history of malignant neoplasm of breast
CPT/HCPCS: 77061; 77065

== ENCOUNTER → 2020-05-16 | Outpatient (CLI) | payer BC ==
--- NOTE | 2020-05-17 09:45 | MM ---
Reason for exam: additional evaluation requested from prior study. Last mammogram was performed 8 months ago. History: Patient is postmenopausal. Family history of premenopausal breast cancer in mother at age 42. Took estrogen for 1 year. Took progesterone for 1 year. Physical Findings: Nurse did not find any significant physical abnormalities on exam. MG 3D Diag Mammo W/Cad LELE Bilateral CC and MLO view(s) were taken. ML, spot compression MLO, and spot compression CC view(s) were taken of the right breast. Prior study comparison: September 21, 2019, left breast MG 3d diag mammo w/cad LT. January 19, 2019, left breast MG 3d work up w/cad LT. The breast tissue is heterogeneously dense. This may lower the sensitivity of mammography. 1.1cm density lower half right breast 6.2cm from nipple. These results were verbally communicated with the patient and result sheet given to the patient on 05/16/20. ASSESSMENT: Incomplete: need additional imaging evaluation, BI-RAD 0 RECOMMENDATION: Ultrasound of the right breast.
--- NOTE | 2020-05-17 09:46 | USB ---
Reason for exam: additional evaluation requested from abnormal screening. History: Patient is postmenopausal. Family history of premenopausal breast cancer in mother at age 42. Took estrogen for 1 year. Took progesterone for 1 year. US Breast Limited RT Right limited breast ultrasound including focal area of concern, retroareolar and axilla demonstrates no cystic or solid lesion seen. These results were verbally communicated with the patient and result sheet given to the patient on 05/16/20. ASSESSMENT: Probably benign, BI-RAD 3 RECOMMENDATION: Follow-up diagnostic mammogram of the right breast in 6 months.
== END | disposition home or self-care (01) ==
LOC: RADMAMWWP 13:21
PROVIDERS: ATTEND Obstetrics & Gynecology
DX: R92.8 Other abnormal and inconclusive findings on diagnostic imaging of breast (principal)
CPT/HCPCS: 77062; 77066

== ENCOUNTER → 2020-12-12 | Outpatient (CLI) | payer BC ==
[2020-12-12 20:04] LABS: HCT 39.3 % (37.2-46.3); HGB 12.7 g/dL (12.0-15.0); MCH 32.2 pg (27.0-32.0); MCHC 32.3 g/dL (32.0-37.0); MCV 99.7 fL (80.0-97.0); Mean Platelet Volume 9.6 fL (9.5-12.2); Platelet Count 338 X 10*3/uL (140-440); RBC 3.94 X 10*6/uL (4.10-5.20); RDW 12.9 % (11.5-14.5); WBC 7.16 X 10*3/uL (4.50-10.00)
[2020-12-13 12:44] LABS: African American GFR (CKD) 117.3 (60.0-200.0); Albumin 4.3 g/dL (3.80-4.90); Albumin/Globulin Ratio 1.79 (1.60-3.17); Anion Gap 11.4 mmol/L (4.00-12.00); BUN/Creat Ratio 33.33 Ratio (12.00-20.00); Carbon Dioxide 26.6 mmol/L (21.6-31.8); Chol/HDL Ratio 1.85; Globulin 2.4 g/dL (1.6-3.3); LDL Cholesterol,Calculated 88.6 mg/dL (0.0-131.0); Non-African American GFR(CKD) 101.2 (60.0-200.0); Potassium 4.3 mmol/L (3.5-5.5); Total Bilirubin 0.6 mg/dL (0.3-1.2); Total Protein 6.7 g/dL (6.2-8.2); VLDL Calculation 11.4 mg/dL (5.00-40.00)
== END | disposition home or self-care (01) ==
LOC: LABWHC1 10:22
PROVIDERS: ATTEND Family Medicine
DX: I10 Essential (primary) hypertension (principal); E78.00 Pure hypercholesterolemia, unspecified; E55.9 Vitamin D deficiency, unspecified
CPT/HCPCS: 36415; 80053; 80061; 82306; 85027

== ENCOUNTER 2021-06-03 04:06 | Emergency (ER) | payer BC ==
[2021-06-03 04:17] VITALS: RESP 18
[2021-06-03] MEDS ORDERED: DEXAMETHASONE SOD PHOSPHATE 10 MG/ML 1 ML VIAL IVP STA (04:20)
[2021-06-03] MEDS ORDERED: ACETAMINOPHEN TAB 500 MG TAB PO STA (04:20)
[2021-06-03] MEDS ORDERED: KETOROLAC 15 MG/ML 1 ML VIAL IVP STA (04:20)
[2021-06-03] MEDS ORDERED: SODIUM CHLORIDE 0.9% 1,000 ML IV STA (04:20)
--- NOTE | 2021-06-03 04:24 | ED ---
Fever HPI - General Chief Complaint: Fever Stated Complaint: Chills, Body Aches Time Seen by Provider: 06/03/21 04:20 Source: patient, RN notes reviewed, old records reviewed Mode of arrival: wheelchair Limitations: no limitations - History of Present Illness Initial Comments: This is a 48-year-old female presenting with significant shaking chills and h eart palpitations, heart beating in her chest. She has no cough congestion or shortness of breath currently. No travel history or known sick contacts. No nausea vomiting or diarrhea. Patient states overall she feels well and severely weak. MD Complaint: fever -: unknown Temperature Source: subjective Associated Symptoms: chills, myalgias - Related Data Home Medications Medication Instructions Recorded Confirmed carBAMazepine [TEGretol] 300 mg PO BID 09/01/13 05/12/18 fluvoxaMINE [Luvox] 100 mg PO DAILY 09/01/13 05/12/18 Losartan/Hydrochlorothiazide 1 tab PO DAILY 01/16/16 05/12/18 [Losartan-Hctz 100-25 mg Tab] amLODIPine [Norvasc] 10 mg PO DAILY 07/07/17 05/12/18 Previous Rx's Medication Instructions Recorded Omeprazole 40 mg PO DAILY #90 capsule. 12/04/16 Omeprazole 40 mg PO DAILY #90 capsule. 05/12/18 Levofloxacin [Levaquin] 500 mg PO DAILY 7 Days #7 tab 06/03/21 Allergies Allergy/AdvReac Type Severity Reaction Status Date / Time tobramycin Allergy eye Verified 06/03/21 04:15 swelling worse, itching erythromycin base AdvReac Severe Nausea & Verified 06/03/21 04:15 [Erythromycin Base] Vomiting Review of Systems ROS Statement: Those systems with pertinent positive or pertinent negative responses have been documented in the HPI. ROS Other: All systems not noted in ROS Statement are negative. Past Medical History Past Medical History: Hypertension, Seizure Disorder Additional Past Medical History / Comment(s): CURRENT CONJUNCTAVITIS LELE EYES, BURNING AT SITE OF LAP BAND PORT, LAST SEIZURE 2007 History of Any Multi-Drug Resistant Organisms: None Reported Past Surgical History: Bariatric Surgery, Section, Tonsillectomy, Tubal Ligation Additional Past Surgical History / Comment(s): Angiogram, lap band 10/25/10, LAP BAND PORT REPLACED, RIGHT TEMPORAL LOBE AVM SURGERY. RECTAL SPHINCTEROTOMY Past Anesthesia/Blood Transfusion Reactions: Motion Sickness, Postoperative Nausea & Vomiting (PONV) Past Psychological History: Depression Smoking Status: Never smoker Past Alcohol Use History: Occasional Past Drug Use History: None Reported - Past Family History Mother Family Medical History: Cancer Additional Family Medical History / Comment(s): BREAST Father Family Medical History: Cancer Additional Family Medical History / Comment(s): PROSTATE CANCER General Exam Limitations: no limitations General appearance: alert, in no apparent distress, anxious Head exam: Present: atraumatic, normocephalic, normal inspection Eye exam: Present: normal appearance, PERRL, EOMI. Absent: scleral icterus, conjunctival injection, periorbital swelling ENT exam: Present: normal exam, mucous membranes moist Neck exam: Present: normal inspection. Absent: tenderness, meningismus, lymphadenopathy Respiratory exam: Present: normal lung sounds bilaterally. Absent: respiratory distress, wheezes, rales, rhonchi, stridor Cardiovascular Exam: Present: regular rate, normal rhythm, normal heart sounds. Absent: systolic murmur, diastolic murmur, rubs, gallop, clicks GI/Abdominal exam: Present: soft, normal bowel sounds. Absent: distended, tenderness, guarding, rebound, rigid Extremities exam: Present: normal inspection, full ROM, normal capillary refill. Absent: tenderness, pedal edema, joint swelling, calf tenderness Back exam: Present: normal inspection Neurological exam: Present: alert, oriented X3, CN II-XII intact Psychiatric exam: Present: normal affect, normal mood Skin exam: Present: warm, dry, intact, normal color. Absent: rash Course Vital Signs 06/03/21 06/03/21 06/03/21 04:09 04:29 04:39 Temperature 103.9 F H 103.2 F H Pulse Rate 101 H Respiratory 18 18 Rate Blood Pressure 66/44 124/70 O2 Sat by Pulse 94 L 92 L 97 Oximetry 06/03/21 06/03/21 06/03/21 05:59 06:23 07:00 Temperature 99.9 F H 99.5 F Pulse Rate 105 H 98 98 Respiratory 18 18 18 Rate Blood Pressure 105/67 106/64 O2 Sat by Pulse 96 95 98 Oximetry - Reevaluation(s) Reevaluation #1: 06/03/21 Medical record is reviewed Patient symptoms are improved here in the emergency department Patient informed of results and questions answered Medical Decision Making - Medical Decision Making 48 female DEL with fever and chills, patient is found to have significant - Lab Data Result diagrams: 06/03/21 04:32 06/03/21 04:32 Lab Results 06/03/21 06/03/21 06/03/21 Range/Units 04:32 04:32 04:32 WBC 3.7 L (3.8-10.6) k/uL RBC 4.23 (3.80-5.40) m/uL Hgb 13.6 (11.4-16.0) gm/dL Hct 41.1 (34.0-46.0) % MCV 97.3 (80.0-100.0) fL MCH 32.2 (25.0-35.0) pg MCHC 33.1 (31.0-37.0) g/dL RDW 12.5 (11.5-15.5) % Plt Count 232 (150-450) k/uL MPV 7.1 Neutrophils % 84 % Lymphocytes % 11 % Monocytes % 1 % Eosinophils % 4 % Basophils % 0 % Neutrophils # 3.1 (1.3-7.7) k/uL Lymphocytes # 0.4 L (1.0-4.8) k/uL Monocytes # 0.0 (0-1.0) k/uL Eosinophils # 0.1 (0-0.7) k/uL Basophils # 0.0 (0-0.2) k/uL Sodium 133 L (137-145) mmol/L Potassium 3.8 (3.5-5.1) mmol/L Chloride 100 (98-107) mmol/L Carbon Dioxide 21 L (22-30) mmol/L Anion Gap 12 mmol/L BUN 13 (7-17) mg/dL Creatinine 0.70 (0.52-1.04) mg/dL Est GFR (CKD-EPI)AfAm >90 (>60 ml/min/1.73 sqM) Est GFR (CKD-EPI)NonAf >90 (>60 ml/min/1.73 sqM) Glucose 133 H (74-99) mg/dL Lactic Ac Sepsis Rflx Plasma Lactic Acid Jesus 2.6 H* (0.7-2.0) mmol/L Calcium 8.3 L (8.4-10.2) mg/dL Magnesium 1.5 L (1.6-2.3) mg/dL Total Bilirubin 0.5 (0.2-1.3) mg/dL AST 33 (14-36) U/L ALT 20 (4-34) U/L Alkaline Phosphatase 64 (38-126) U/L Lactate Dehydrogenase 428 (313-618) U/L C-Reactive Protein 6.6 H (<1.0) mg/dL NT-Pro-B Natriuret Pep pg/mL Total Protein 7.1 (6.3-8.2) g/dL Albumin 4.0 (3.5-5.0) g/dL Urine Color Urine Appearance (Clear) Urine pH (5.0-8.0) Ur Specific [place] (1.001-1.035) Urine Protein (Negative) Urine Glucose (UA) (Negative) Urine Ketones (Negative) Urine Blood (Negative) Urine Nitrite (Negative) Urine Bilirubin (Negative) Urine Urobilinogen (<2.0) mg/dL Ur Leukocyte Esterase (Negative) Urine RBC (0-5) /hpf Urine WBC (0-5) /hpf Ur Squamous Epith Cells (0-4) /hpf Urine Bacteria (None) /hpf Urine Mucus (None) /hpf Coronavirus (PCR) (Not Detectd) Influenza Type A RNA (Not Detectd) Influenza Type B (PCR) (Not Detectd) 06/03/21 06/03/21 06/03/21 Range/Units 04:32 04:32 05:25 WBC (3.8-10.6) k/uL RBC (3.80-5.40) m/uL Hgb (11.4-16.0) gm/dL Hct (34.0-46.0) % MCV (80.0-100.0) fL MCH (25.0-35.0) pg MCHC (31.0-37.0) g/dL RDW (11.5-15.5) % Plt Count (150-450) k/uL MPV Neutrophils % % Lymphocytes % % Monocytes % % Eosinophils % % Basophils % % Neutrophils # (1.3-7.7) k/uL Lymphocytes # (1.0-4.8) k/uL Monocytes # (0-1.0) k/uL Eosinophils # (0-0.7) k/uL Basophils # (0-0.2) k/uL Sodium (137-145) mmol/L Potassium (3.5-5.1) mmol/L Chloride (98-107) mmol/L Carbon Dioxide (22-30) mmol/L Anion Gap mmol/L BUN (7-17) mg/dL Creatinine (0.52-1.04) mg/dL Est GFR (CKD-EPI)AfAm (>60 ml/min/1.73 sqM) Est GFR (CKD-EPI)NonAf (>60 ml/min/1.73 sqM) Glucose (74-99) mg/dL Lactic Ac Sepsis Rflx Plasma Lactic Acid Jesus (0.7-2.0) mmol/L Calcium (8.4-10.2) mg/dL Magnesium (1.6-2.3) mg/dL Total Bilirubin (0.2-1.3) mg/dL AST (14-36) U/L ALT (4-34) U/L Alkaline Phosphatase (38-126) U/L Lactate Dehydrogenase (313-618) U/L C-Reactive Protein (<1.0) mg/dL NT-Pro-B Natriuret Pep 78 pg/mL Total Protein (6.3-8.2) g/dL Albumin (3.5-5.0) g/dL Urine Color Yellow Urine Appearance Clear (Clear) Urine pH 5.5 (5.0-8.0) Ur Specific [place] 1.019 (1.001-1.035) Urine Protein 1+ H (Negative) Urine Glucose (UA) Negative (Negative) Urine Ketones 1+ H (Negative) Urine Blood Small H (Negative) Urine Nitrite Negative (Negative) Urine Bilirubin Negative (Negative) Urine Urobilinogen <2.0 (<2.0) mg/dL Ur Leukocyte Esterase Negative (Negative) Urine RBC 10 H (0-5) /hpf Urine WBC <1 (0-5) /hpf Ur Squamous Epith Cells 4 (0-4) /hpf Urine Bacteria Occasional H (None) /hpf Urine Mucus Rare H (None) /hpf Coronavirus (PCR) Not Detected (Not Detectd) Influenza Type A RNA (Not Detectd) Influenza Type B (PCR) (Not Detectd) 06/03/21 06/03/21 Range/Units 05:37 05:40 WBC (3.8-10.6) k/uL RBC (3.80-5.40) m/uL Hgb (11.4-16.0) gm/dL Hct (34.0-46.0) % MCV (80.0-100.0) fL MCH (25.0-35.0) pg MCHC (31.0-37.0) g/dL RDW (11.5-15.5) % Plt Count (150-450) k/uL MPV Neutrophils % % Lymphocytes % % Monocytes % % Eosinophils % % Basophils % % Neutrophils # (1.3-7.7) k/uL Lymphocytes # (1.0-4.8) k/uL Monocytes # (0-1.0) k/uL Eosinophils # (0-0.7) k/uL Basophils # (0-0.2) k/uL Sodium (137-145) mmol/L Potassium (3.5-5.1) mmol/L Chloride (98-107) mmol/L Carbon Dioxide (22-30) mmol/L Anion Gap mmol/L BUN (7-17) mg/dL Creatinine (0.52-1.04) mg/dL Est GFR (CKD-EPI)AfAm (>60 ml/min/1.73 sqM) Est GFR (CKD-EPI)NonAf (>60 ml/min/1.73 sqM) Glucose (74-99) mg/dL Lactic Ac Sepsis Rflx Y Plasma Lactic Acid Jesus (0.7-2.0) mmol/L Calcium (8.4-10.2) mg/dL Magnesium (1.6-2.3) mg/dL Total Bilirubin (0.2-1.3) mg/dL AST (14-36) U/L ALT (4-34) U/L Alkaline Phosphatase (38-126) U/L Lactate Dehydrogenase (313-618) U/L C-Reactive Protein (<1.0) mg/dL NT-Pro-B Natriuret Pep pg/mL Total Protein (6.3-8.2) g/dL Albumin (3.5-5.0) g/dL Urine Color Urine Appearance (Clear) Urine pH (5.0-8.0) Ur Specific [place] (1.001-1.035) Urine Protein (Negative) Urine Glucose (UA) (Negative) Urine Ketones (Negative) Urine Blood (Negative) Urine Nitrite (Negative) Urine Bilirubin (Negative) Urine Urobilinogen (<2.0) mg/dL Ur Leukocyte Esterase (Negative) Urine RBC (0-5) /hpf Urine WBC (0-5) /hpf Ur Squamous Epith Cells (0-4) /hpf Urine Bacteria (None) /hpf Urine Mucus (None) /hpf Coronavirus (PCR) (Not Detectd) Influenza Type A RNA Not Detected (Not Detectd) Influenza Type B (PCR) Not Detected (Not Detectd) - EKG Data -: EKG Interpreted by Me (EKG is sinus tachycardia 127 VA 160 QRS 84 QTc 382) - Radiology Data Radiology results: report reviewed (Chest x-ray does show pneumonia left lower lobe pneumonia), image reviewed Disposition Clinical Impression: Fever, Community acquired pneumonia Disposition: HOME SELF-CARE Condition: Good Instructions (If sedation given, give patient instructions): Fever in Adults (ED), Community Acquired Pneumonia (ED) Prescriptions: Levofloxacin [Levaquin] 500 mg PO DAILY 7 Days #7 tab Is patient prescribed a controlled substance at d/c from ED?: No Referrals: Nico Manzano DO [Primary Care Provider] - 1-2 days
[2021-06-03] MEDS ORDERED: SODIUM CHLORIDE 0.9% 1,000 ML IV SCH (04:30)
[2021-06-03 04:49] LABS: Basophils % (A) 0 %; Eosinophils # (A) 0.1 k/uL (0-0.7); Eosinophils % (A) 4 %; HCT 41.1 % (34.0-46.0); HGB 13.6 gm/dL (11.4-16.0); Lymphocytes # (A) 0.4 k/uL (1.0-4.8); Lymphocytes % (A) 11 %; MCH 32.2 pg (25.0-35.0); MCHC 33.1 g/dL (31.0-37.0); MCV 97.3 fL (80.0-100.0); Mean Platelet Volume 7.1; Monocytes % (A) 1 %; Neutrophils # (A) 3.1 k/uL (1.3-7.7); Neutrophils % (A) 84 %; Platelet Count 232 k/uL (150-450); RBC 4.23 m/uL (3.80-5.40); RDW 12.5 % (11.5-15.5); WBC 3.7 k/uL (3.8-10.6)
--- NOTE | 2021-06-03 04:55 | XR ---
EXAMINATION TYPE: XR chest 1V portable DATE OF EXAM: 06/03/2021 COMPARISON: NONE HISTORY: Body aches. Chills. TECHNIQUE: Single view FINDINGS: Heart and mediastinum are normal. There is some mild infiltrate left lower lobe. The right lung is clear. There are chest leads. There is no pleural effusion. No heart failure. IMPRESSION: There is some mild left lower lobe pneumonia. Normal heart.
[2021-06-03 05:27] LABS: ALT 20 U/L (4-34); AST 33 U/L (14-36); African American GFR (CKD) >90 (>60 ml/min/1.73 sqM); Alkaline Phosphatase 64 U/L (38-126); Anion Gap 12 mmol/L; Blood Urea Nitrogen 13 mg/dL (7-17); C Reactive Protein 6.6 mg/dL (<1.0); Calcium 8.3 mg/dL (8.4-10.2); Carbon Dioxide 21 mmol/L (22-30); Chloride 100 mmol/L (98-107); Glucose 133 mg/dL (74-99); LDH 428 U/L (313-618); Magnesium 1.5 mg/dL (1.6-2.3); Non-African American GFR(CKD) >90 (>60 ml/min/1.73 sqM); Potassium 3.8 mmol/L (3.5-5.1); Sodium 133 mmol/L (137-145); Total Bilirubin 0.5 mg/dL (0.2-1.3); Total Protein 7.1 g/dL (6.3-8.2)
[2021-06-03] MEDS ORDERED: LEVOFLOXACIN 500MG-D5W PMX 500 MG in DEXTROSE/WATER 1 100ML.BAG IVPB STA (05:36)
[2021-06-03 05:38] LABS: Appearance,Urine Clear (Clear); Bacteria,Urine Occasional /hpf; Bilirubin,Urine Negative (Negative); Blood,Urine Small (Negative); Color,Urine Yellow; Glucose,Urine (UA) Negative (Negative); Ketones,Urine 1+ (Negative); Leukocyte Esterase,Urine Negative (Negative); Mucus,Urine Rare /hpf; Nitrite,Urine Negative (Negative); PH, Urine 5.5 (5.0-8.0); Protein,Urine 1+ (Negative); RBC,Urine 10 /hpf (0-5); Specific Gravity,Urine 1.019 (1.001-1.035); Squamous Epithelial Cell,Urine 4 /hpf (0-4); Urobilinogen,Urine <2.0 mg/dL (<2.0); WBC,Urine <1 /hpf (0-5)
[2021-06-03] MEDS ORDERED: cefTRIAXone IN SWFI 1,000 MG/10 ML SYRINGE IVP ONE (05:45)
[2021-06-03] MEDS ORDERED: IBUPROFEN 600 MG TAB PO STA (06:17)
[2021-06-03 06:24] VITALS: PULSE 98
[2021-06-03 07:01] VITALS: BP 106/64; TEMP 99.5
== END 2021-06-03 07:03 | disposition home or self-care (01) ==
LOC: EC 04:06
DX: R50.9 Fever, unspecified (principal); J18.8 Other pneumonia, unspecified organism; I10 Essential (primary) hypertension; F32.A Depression, unspecified; Z88.1 Allergy status to other antibiotic agents; Z98.84 Bariatric surgery status; Z98.51 Tubal ligation status; Z20.822 Contact with and (suspected) exposure to COVID-19
CPT/HCPCS: 99285; 96374; 96375 ×2; 36415; 93005; 83880; 80053; 83605; 83615; 83735; 85025; 86140; 81001; 87040; 87502; 87635; 71045; J1100; J1956; J0696; J1885

== ENCOUNTER → 2021-07-24 | Outpatient (CLI) | payer BC ==
--- NOTE | 2021-07-24 11:49 | MM ---
Reason for exam: additional evaluation requested from prior study. Last mammogram was performed 1 year and 2 months ago. History: Patient is postmenopausal. Family history of premenopausal breast cancer in mother at age 42. Took estrogen for 1 year. Took progesterone for 1 year. Taking other hormone beginning at age 52. Physical Findings: A clinical breast exam by your physician is recommended on an annual basis and results should be correlated with mammographic findings. MG 3D Diag Mammo W/Cad LELE Bilateral CC and MLO view(s) were taken. Prior study comparison: May 16, 2020, bilateral MG 3d diag mammo w/cad LELE. September 21, 2019, left breast MG 3d diag mammo w/cad LT. January 11, 2019, bilateral MG screening mammo w CAD. There are scattered fibroglandular densities. There is no discrete abnormality. Results were given to the patient verbally at the time of the exam. ASSESSMENT: Negative, BI-RAD 1 RECOMMENDATION: Routine screening mammogram of both breasts in 1 year.
== END | disposition home or self-care (01) ==
LOC: RADMAMWWP 10:15
PROVIDERS: ATTEND Obstetrics & Gynecology
DX: R92.8 Other abnormal and inconclusive findings on diagnostic imaging of breast (principal); Z78.0 Asymptomatic menopausal state; Z80.3 Family history of malignant neoplasm of breast
CPT/HCPCS: 77062; 77066

== ENCOUNTER → 2022-09-23 | Outpatient (CLI) | payer BC ==
--- NOTE | 2022-09-24 08:15 | MM ---
Reason for Exam: Screening (asymptomatic). Last mammogram was performed 1 year(s) and 2 month(s) ago. Patient History: Menarche at age 10. First Full-Term at age 25. Postmenopausal. Patient used Estrogen for 1 year. Patient used Progesterone for 1 year. Mother had breast cancer, age 42. Risk Values: Ruth 5 year model risk: 2.7%. NCI Lifetime model risk: 14.2%. Prior Study Comparison: 09/21/2019 Left Diagnostic Mammogram, [facility]. 05/16/2020 Bilateral Diagnostic Mammogram, [facility]. 07/24/2021 Bilateral Diagnostic Mammogram, [facility]. Tissue Density: There are scattered fibroglandular densities. Findings: Analyzed By CAD. There is no suspicious group of microcalcifications within either breast. Benign appearing calcifications within the left breast. No new suspicious mass within the left breast. Asymmetry demonstrated centrally at posterior depth within the right breast only on the CC view. Overall Assessment: Incomplete: need additional imaging evaluation, BI-RAD 0 Management: Diagnostic Mammogram of the right breast. A clinical breast exam by your physician is recommended on an annual basis and results should be correlated with mammographic findings. [facility] will attempt to contact patient to return for supplemental views and ultrasound if indicated. Note on Ruth scores and lifetime risk: 1. A Ruth score greater than 3% is considered moderate risk. If this is the case, consider specialist referral to assess eligibility for a risk reducing agent. If overall lifetime risk for the development of breast cancer is 20% or higher, the patient may qualify for future screening with alternating mammogram and breast MRI. Electronically signed and approved by: Herson Monzon D.O.
== END | disposition home or self-care (01) ==
LOC: RADMAMWWP 11:44
PROVIDERS: ATTEND Obstetrics & Gynecology
DX: Z12.31 Encounter for screening mammogram for malignant neoplasm of breast (principal); Z78.0 Asymptomatic menopausal state; Z80.3 Family history of malignant neoplasm of breast
CPT/HCPCS: 77063; 77067

== ENCOUNTER → 2022-10-01 | Outpatient (CLI) | payer BC ==
--- NOTE | 2022-10-01 10:54 | MM ---
Reason for Exam: Additional evaluation requested from abnormal screening. Last screening mammogram was performed less than 1 month ago. Patient History: Menarche at age 10. First Full-Term at age 25. Postmenopausal. Patient used Estrogen for 1 year. Patient used Progesterone for 1 year. Mother had breast cancer, age 42. Risk Values: Ruth 5 year model risk: 2.7%. NCI Lifetime model risk: 14.2%. Prior Study Comparison: 08/05/2017 Bilateral Screening Mammogram, [facility]. 01/11/2019 Bilateral Screening Mammogram, [facility]. 01/19/2019 Left Diagnostic Mammogram, [facility]. 09/21/2019 Left Diagnostic Mammogram, [facility]. 05/16/2020 Bilateral Diagnostic Mammogram, [facility]. 07/24/2021 Bilateral Diagnostic Mammogram, [facility]. 09/23/2022 Bilateral MG 3D screening mammo w/cad, [facility]. Tissue Density: Right: The breast tissue is heterogeneously dense. This may lower the sensitivity of mammography. Findings: Analyzed By CAD. Within the central portion of the right breast 8.1 cm from the nipple is a persistent nodular density. Ultrasound is recommended. Overall Assessment: Incomplete: need additional imaging evaluation, BI-RAD 0 Management: Diagnostic Breast Ultrasound of the right breast. . Results were given to the patient verbally at the time of exam. Patient should continue monthly self-breast exams. A clinical breast exam by your physician is recommended on an annual basis. This exam should not preclude additional follow-up of suspicious palpable abnormalities. Note on Ruth scores and lifetime risk: 1. A Ruth score greater than 3% is considered moderate risk. If this is the case, consider specialist referral to assess eligibility for a risk reducing agent. 2. If overall lifetime risk for the development of breast cancer is 20% or higher, the patient may qualify for future screening with alternating mammogram and breast MRI. Electronically signed and approved by: Leonardo Vargas M.D. Radiologis
--- NOTE | 2022-10-01 11:47 | USB ---
Reason for Exam: Additional evaluation requested from abnormal screening. Patient History: Menarche at age 10. First Full-Term at age 25. Postmenopausal. Patient used Estrogen for 1 year. Patient used Progesterone for 1 year. Mother had breast cancer, age 42. Risk Values: Ruth 5 year model risk: 2.7%. NCI Lifetime model risk: 14.2%. Technique: Method: Targeted. Prior Study Comparison: 05/16/2020 Bilateral Diagnostic Mammogram, [facility]. 07/24/2021 Bilateral Diagnostic Mammogram, [facility]. 09/23/2022 Bilateral MG 3D screening mammo w/cad, [facility]. Findings: The upper section of the breast of the right breast, the lower section of the breast of the right breast, the axilla of the right breast and the retroareolar of the right breast were scanned. No solid or cystic masses are identified.. Overall Assessment: Probably benign, BI-RAD 3 Management: Diagnostic Mammogram of the right breast in 6 months. A clinical breast exam by your physician is recommended on an annual basis and results should be correlated with mammographic findings. This exam should not preclude additional follow-up of suspicious palpable abnormalities. Results were given to the patient verbally at the time of exam. Electronically signed and approved by: Leonardo Vargas M.D. Radiologis
== END | disposition home or self-care (01) ==
LOC: RADMAMWWP 10:20
PROVIDERS: ATTEND Obstetrics & Gynecology
DX: R92.8 Other abnormal and inconclusive findings on diagnostic imaging of breast (principal); Z78.0 Asymptomatic menopausal state; Z80.3 Family history of malignant neoplasm of breast
CPT/HCPCS: 77061; 77065

== ENCOUNTER → 2023-09-02 | Outpatient (CLI) | payer BC ==
--- NOTE | 2023-09-02 09:16 | MM ---
Reason for Exam: Follow-up at short interval from prior study. Last screening mammogram was performed 12 month(s) ago. Patient History: Menarche at age 10. First Full-Term at age 25. Postmenopausal. Patient has history of breast feeding. Currently using Estrogen, for 1 year. Currently using Progesterone, for 1 year. Mother had breast cancer, age 42. Risk Values: Ruth 5 year model risk: 2.8%. NCI Lifetime model risk: 13.9%. Prior Study Comparison: Screening Mammogram, [facility]. 01/11/2009 Bilateral Screening Mammogram, [facility]. 08/05/2017 Bilateral Screening Mammogram, [facility]. 01/11/2019 Bilateral Screening Mammogram, [facility]. 01/19/2019 Left Diagnostic Mammogram, [facility]. 09/21/2019 Left Diagnostic Mammogram, [facility]. 05/16/2020 Bilateral Diagnostic Mammogram, [facility]. 05/16/2020 Right Diagnostic Ultrasound, [facility]. 07/24/2021 Bilateral Diagnostic Mammogram, [facility]. 09/23/2022 Bilateral MG 3D screening mammo w/cad, [facility]. 10/01/2022 Right US breast workup limited RT, [facility]. 10/01/2022 Right MG 3D work up w/cad RT, [facility]. Tissue Density: There are scattered areas of fibroglandular density. Findings: Analyzed By CAD. Previously questioned subtle asymmetric density right cc view of the posterior depth has become less pronounced and is now better seen on 3-D images, similar to that 2021 exam. Asymmetric density superior subareolar left MLO view becomes less pronounced on additional views. Punctate calcifications here are unchanged. No significant change from prior exams. Overall Assessment: Benign, BI-RAD 2 Management: Screening Mammogram of both breasts in 1 year. . Results were given to the patient verbally at the time of exam. Patient should continue monthly self-breast exams. A clinical breast exam by your physician is recommended on an annual basis. This exam should not preclude additional follow-up of suspicious palpable abnormalities. Note on Ruth scores and lifetime risk: 1. A Ruth score greater than 3% is considered moderate risk. If this is the case, consider specialist referral to assess eligibility for a risk reducing agent. 2. If overall lifetime risk for the development of breast cancer is 20% or higher, the patient may qualify for future screening with alternating mammogram and breast MRI. Electronically signed and approved by: David Mayer M.D. Radiologist
== END | disposition home or self-care (01) ==
LOC: RADMAMWWP 08:14
PROVIDERS: ATTEND Obstetrics & Gynecology
DX: R92.323 Mammographic fibroglandular density, bilateral breasts (principal); Z78.0 Asymptomatic menopausal state; Z80.3 Family history of malignant neoplasm of breast
CPT/HCPCS: 77062; 77066

== ENCOUNTER → 2023-09-04 | Outpatient (CLI) | payer BC ==
--- NOTE | 2023-09-04 12:09 | FL ---
EXAMINATION TYPE: FL barium swallow DATE OF EXAM: 09/04/2023 CLINICAL INDICATION: 58-year-old female R13.10, dysphagia, difficulty swallowing and reflux for 6 mon ths. Patient with previous lap band. COMPARISON: 06/05/2016 Total Fluoroscopy Time: 1 minute 29 seconds DAP: 398.56 mGycm2 32 images obtained. FINDINGS: There is normal course and caliber of the thoracic esophagus. Allowing for single contrast technique, no discrete mucosal abnormality or abnormal filling defect is encountered. There is prompt passage of contrast from the esophagus into the proximal stomach. 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 The restriction across the lap band appears to be in creased compared to the 2017 exam. This results in some pooling of contrast in the distal esophagus with intermittent episodes of intrae sophageal reflux. IMPRESSION: 1. Lap band in place without evidence for prolapse. Lap band appears fairly tight with restriction in creased compared to 2017. 2. This results in pooling of contrast in the distal esophagus and intermittent episodes of gastroeso phageal reflux. 3. Otherwise, no esophageal stricture or other discrete abnormality is seen.
== END | disposition home or self-care (01) ==
LOC: RADUSWWP 08:10
PROVIDERS: ATTEND Surgery Plastic and Reconstructive Surgery
DX: K21.9 Gastro-esophageal reflux disease without esophagitis (principal); R13.10 Dysphagia, unspecified; Z98.84 Bariatric surgery status
CPT/HCPCS: 74220

== ENCOUNTER → 2024-09-15 | Outpatient (CLI) | payer BC ==
--- NOTE | 2024-09-15 12:40 | US ---
EXAMINATION TYPE: US venous doppler duplex LE LT DATE OF EXAM: 09/15/2024 12:36 PM COMPARISON: NONE CLINICAL INDICATION: Female, 59 years old with history of M79.605 PAIN IN LEFT LEG; pain in left leg x 1 week, Pain TECHNIQUE: The lower extremity deep venous system is examined utilizing real time linear array sonog kalyani with graded compression, color doppler sonography, and spectral doppler. SIDE PERFORMED: Left FINDINGS: VESSELS IMAGED: Common Femoral Vein Deep Femoral Vein Greater Saphenous Vein * Femoral Vein Popliteal Vein Small Saphenous Vein * Proximal Calf Veins (* superficial vessels) Left Leg: No evidence for DVT, Color Doppler imaging shows patency of the vessels. Spectral waveform s are within normal limits. IMPRESSION: No ultrasound evidence for deep venous thrombosis. [facility], , 09/15/2024 12:38 PM
== END | disposition home or self-care (01) ==
LOC: RADUSWWP 12:16
PROVIDERS: ATTEND Family Medicine
DX: M79.605 Pain in left leg (principal)